=== PATIENT | male | born 1940 | race Caucasian/White ===

== ENCOUNTER 2017-03-22 08:01 | Emergency (ER) | payer MEDICARE, OTHER ==
[~2017-03-22] VITALS: Ht 180.3 cm; Wt 88.6 kg
[~2017-03-22 08:01] MED LIST: ASPI-628 PO; ATEN25TA PO; KEN1C EXT; LEVO125T6 PO; LISI40TA PO; NIAC1CAP PO; OMEP40CA36 PO; SIMV40TA5 PO
[2017-03-22 08:08] VITALS: BP 158/74; PULSE 70; RESP 16; O2SAT 99
--- NOTE | 2017-03-22 08:20 | ED.REPORT ---
HPI- Male Date of Service Mar 22, 2017 ED Provider: Guerline Nguyen MD The pt is a 76 y/o male w/ a hx of HTN and hyperlipidemia presenting to the ED complaining of increased difficulty urinating onset last night. He also reports hematuria and dysuria. He reports working outside in the heat all day yesterday then feeling chills later that night. He reports that he has an enlarged prostate but does not take any medications to help with his symptoms. He has experienced difficulty urinating in the past and reports needing a catheter to be placed overnight then. The pt has not had intercourse w/ his in a month or two. The pt also reports having a cystotomy ten year ago. Nursing Notes Stated Complaint: BLOOD IN URINE, DIFFICULTY URINATING Chief Complaint: Difficulty urinating Nursing Notes Reviewed: Yes Allergies: Coded Allergies: Penicillins (Verified Allergy, Severe, ITCH,RASH,HIVES, 03/22/17) [id number] Reductase Inhibitor (Verified Allergy, Unknown, 03/22/17) Uncoded Allergies: Penicillin (Allergy, Severe, ITCH,RASH,HIVES, 02/04/05) Scheduled Aspirin (Aspir 81) 81 Mg Tablet. 81 MG PO DAILY Atenolol (Atenolol) 25 Mg Tablet 25 MG PO DAILY Levothyroxine (Levothyroxine) 125 Mcg Tablet 0.137 MCG PO DAILY Lisinopril (Lisinopril) 40 Mg Tablet 60 MG PO DAILY Omeprazole (Omeprazole) 40 Mg Capsule. 20 MG PO BID Simvastatin (Simvastatin) 40 Mg Tablet 40 MG PO HS Tamsulosin (Flomax) 0.4 Mg Capsule 0.4 MG PO DAILY Triamcinolone Acet (Triamcinolone Acetonide Cream) 1 Applic/0.25 Gm Cr 1 APPLIC EXT BID Miscellaneous Medications Cholecalciferol (Vitamin D3) (Vitamin D3) 1,000 Unit Tab.chew 1,000 UNIT PO Clobetasol Propionate (Clobetasol Propionate) 15 Gm Gel..gram. 0.05 GM TP Diclofenac Gel (Diclofenac Gel) 100 Gm Tube 1 APPLIC TOPICAL Flunisolide (Flunisolide) 25 Ml [place] 25 ML NS General Time Seen by MD: 08:19 Chief Complaint Urination decreased Hx Obtained From: Patient Arrived By: Walk-in Onset Occurred: Yesterday Symptom Duration: Since onset Recent Healthcare: No recent hospitalization, Recent doctor visit Similar Sx Previous: Yes Past Medical History Past Medical History Reports: GERD, Hyperlipidemia, Hypertension Smoking History Never Smoker Ambulatory Status Independent Review of Systems Male: Reports Dysuria, Reports Hematuria, Reports Urination decreased Complete sys rev & neg: except as marked. Physical Exam Initial Vital Signs Vital Signs (First) Date Time Temp Pulse Resp B/P Pulse Ox O2 Delivery O2 Flow Rate FiO2 03/22/17 08:08 36.0 70 16 158/74 99 Room Air Initial VS: Reviewed General/Constitutional: Well-developed, Well-nourished ENT: Mucous membranes moist, Conjunctiva normal, No scleral icterus Neck: Supple, Non-tender, Full range of motion Respiratory: Breath sounds normal, Clear to auscultation, No respiratory distress Cardiovascular: Regular rate & rhythm, Heart sounds normal, Intact distal pulses Extremities: Vascular intact, Neuro intact, No swelling, No tenderness Neurologic: Alert, Oriented, Nonfocal Psychiatric: Mood/affect normal, Behavior normal, Normal thought content Male Genitourinary: Patient refused exam Skin: Color NL, No rash, Warm, Dry [place]-actinic keratoses over scalp and forehead that were recently treated w/ liquid nitrogen Interpretation & Diagnostics Ultrasound showed that post-void residual is 150 cc 400 cc removed w/ Cruz catheter Lab Results Interpretation Test 03/22/17 08:00 Urine Color Yellow (YELLOW) Urine Appearance Turbid (CLEAR,HAZY) Urine pH 6.0 (5.0-8.0) Urine Specific [place] 1.010 (1.003-1.035) Urine Protein 100mg/dL (NEG,TRACE) Urine Glucose (UA) Negativemg/dL (NEGATIVE) Urine Ketones Negativemg/dL (NEGATIVE) Urine Occult Blood Large (NEGATIVE) Urine Nitrite Positive (NEGATIVE) Urine Bilirubin Negative (NEGATIVE) Urine Urobilinogen Normalmg/dL (NORMAL) Urine Leukocyte Esterase Large (NEGATIVE) Urine RBC >50/hpf (0-2) Urine WBC >50/hpf (0-5) Urine Epithelial Cells Occasional/hpf (NONE-MOD) Urine Crystals None seen (NONE SEEN) Urine Bacteria Few/hpf (NONE-FEW) Urine Hyaline Casts None/lpf (NONE) Urine Granular Casts None seen (NONE SEEN) Urine Waxy Casts None seen (NONE SEEN) Urine Red Blood Cell Casts None seen (NONE SEEN) Urine White Blood Cell Casts None seen (NONE SEEN) Urine Mucus None seen (None Seen) Urine Trichomonas None seen (NONE SEEN) Urine Yeast None (NONE SEEN) Urinalysis Comment None Re-Eval/Medical Decision Med Decision/Clinical Course Presents with acute urinary retention. No difficulties with placing catheter. Discharged home with instructions to follow up with Dr. Yap tomorrow and given a first dose of Flomax. Concern that we make him dizzy he believes he has tried this previously. About 2 hours after discharge he notices severe pain no urine coming through the Cruz and urine draining out around the Cruz catheter. He also notices some blood clots in the Cruz catheter bag. Emergency the emergency department where the Cruz is flushed and again has clear urine return. 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 Source of Hx: Old records Re-Evaluation/Progress #1: Time of Eval: 09:33 Re-Evaluation/Progress Note: Pt rechecked. Informed pt of plan for treatment. Pt understands and agrees with plan for treatment. F/U instructions and RTER warnings given. All questions addressed. Re-Evaluation/Progress #2: Time of Eval: 12:01 Re-Evaluation/Progress Note: Pt has returned to the ED due to noticing blood clots in his catheter. Re-Evaluation/Progress #3: Time of Eval: 12:30 Re-Evaluation/Progress Note: The pt's catheter was irrigated. Minimal urine was in the bladder and only small blood clots came out. Counseled Regarding: Diagnosis, Lab results, Need for follow-up, When/why to return to ED Discharge & Departure Impression: Primary Impression: Acute urinary retention Disposition: Home Discharge Condition All VS Reviewed: Yes Condition: Stable Additional Instructions: Thank for you entrusting us with your care today. You were diagnosed with acute urinary retention. Your urine has been sent to the lab to see if there is an infection. You have not been started on antibiotics but please use the Flomax as recommended. This can help with prostate fullness. If you find that it makes you dizzy or have low blood pressure then please stop it. You had your first dose in the emergency room today and a prescription has been electronically sent to [facility] for you. You have and appointment to see Dr Carlson, the urologist, for a follow up visit on 03/23/17. Please check in at 10:30 Please return to the emergency department if you experience any new or worsening symptoms. I hope you feel better soon. after returning 2 hrs later needed catheter flushed: your catheter was briefly plugged after placement this morning. We were able to flush out some clots and you have had clear urine since. You did notice dizziness after the flomax. It was worth a try, but doesn't look like a medicine you are going to be able to tolerate. Please keep your apt with Dr Carlson tomorrow. Referrals: Kylee Dickens MD [facility] Scribe Attestation Portions of this note were transcribed by Obie Jacob. I, Dr. Nguyen personally performed the history, physical exam and medical decision-making; I reviewed and confirmed the accuracy of the information in the transcribed note. copies to: Kylee Dickens MD, Shawna L MD Mar 22, 2017 08:20 Obie Jacob Mar 22, 2017 08:52
[2017-03-22] MEDS ORDERED: CHOL10008 PO (08:45)
[2017-03-22] MEDS ORDERED: FLUN25SP NS (08:45)
[2017-03-22] MEDS ORDERED: CLOB15GE TP (08:45)
[2017-03-22] MEDS ORDERED: DICL100G26 TOPICAL (08:45)
[2017-03-22 09:02] LABS: APPEARANCE,URINE TURBID (CLEAR,HAZY); COLOR,URINE YELLOW (YELLOW)
[2017-03-22 09:03] LABS: OCCULT BLOOD,URINE LARGE (NEGATIVE); UROBILINOGEN,URINE NORMAL (NORMAL)
[2017-03-22] MEDS ORDERED: TAMS0.4C98 PO (09:20)
[2017-03-22 09:57] VITALS: BP 158/74; PULSE 70; RESP 16; O2SAT 99
[2017-03-22] MEDS ORDERED: PHEN-777 PO (22:55)
== END 2017-03-22 09:58 | disposition home or self-care (01) ==
LOC: SED 08:01
DX: R33.9 Retention of urine, unspecified (principal); I10 Essential (primary) hypertension; K21.9 Gastro-esophageal reflux disease without esophagitis; E78.5 Hyperlipidemia, unspecified; B96.20 Unspecified Escherichia coli [E. coli] as the cause of diseases classified elsewhere; Z79.82 Long term (current) use of aspirin; Z88.0 Allergy status to penicillin

== ENCOUNTER 2017-03-22 11:36 | Emergency (ER) | payer MEDICARE, OTHER ==
[~2017-03-22] VITALS: Ht 180.3 cm; Wt 88.6 kg
[~2017-03-22 11:36] MED LIST changes: +CHOL10008 PO; +CLOB15GE TP; +DICL100G26 TOPICAL; +FLUN25SP NS; +TAMS0.4C98 PO
[2017-03-22 11:40] VITALS: BP 122/65; PULSE 89; RESP 14; O2SAT 99
[2017-03-22 13:38] VITALS: BP 116/68; PULSE 76; RESP 16; O2SAT 100
[2017-03-22 13:47] VITALS: BP 116/68; PULSE 76; RESP 16; O2SAT 100
[2017-03-22] MEDS ORDERED: PHEN-777 PO (22:55)
--- NOTE | 2017-03-24 11:59 | PCM.EDPN ---
ED Note Date of Service Mar 24, 2017 this visit is a continuation of his visit a few hours earlier today. Please refer to that note for full details. Guerline Nguyen MD Mar 24, 2017 11:59
== END 2017-03-22 13:48 | disposition home or self-care (01) ==
LOC: SED 11:36
DX: Z53.20 Procedure and treatment not carried out because of patient's decision for unspecified reasons (principal)

== ENCOUNTER 2017-03-22 19:54 | Emergency (ER) | payer OTHER ==
[~2017-03-22] VITALS: Ht 177.8 cm; Wt 90.9 kg
[2017-03-22 19:58] VITALS: BP 116/65; PULSE 87; RESP 18; O2SAT 98
[2017-03-22] MEDS ORDERED: Lidocaine 2% 6mL Topical Jelly ONE (21:25)
--- NOTE | 2017-03-22 21:50 | ED.REPORT ---
HPI- Male Date of Service Mar 22, 2017 ED Provider: Adama Macias MD A 76 year old male with a history of hypertension, hyperlipidemia and GERD presents to the ED complaining of a blocked catheter. The pt had a catheter placed this morning in the ED and this is his second visit since for blockage of this catheter. His catheter has been irrigated multiple times and he has been passing clots. He last passed urine through the catheter at 17:00 today. At that time, he passed blood and experienced significant lower abdominal and penile pain. The pt has an appointment with his urologist tomorrow morning. Nursing Notes Stated Complaint: BLOCKED CATHETER Chief Complaint: Male Abdominal Pain Nursing Notes Reviewed: Yes Allergies: Coded Allergies: Penicillins (Verified Allergy, Severe, ITCH,RASH,HIVES, 03/22/17) [id number] Reductase Inhibitor (Verified Allergy, Unknown, 03/22/17) Uncoded Allergies: Penicillin (Allergy, Severe, ITCH,RASH,HIVES, 02/04/05) Scheduled Aspirin (Aspir 81) 81 Mg Tablet.dr 81 MG PO DAILY Atenolol (Atenolol) 25 Mg Tablet 25 MG PO DAILY Levothyroxine (Levothyroxine) 125 Mcg Tablet 0.137 MCG PO DAILY Lisinopril (Lisinopril) 40 Mg Tablet 60 MG PO DAILY Omeprazole (Omeprazole) 40 Mg Capsule.dr 20 MG PO BID Simvastatin (Simvastatin) 40 Mg Tablet 40 MG PO HS Tamsulosin (Flomax) 0.4 Mg Capsule 0.4 MG PO DAILY Triamcinolone Acet (Triamcinolone Acetonide Cream) 1 Applic/0.25 Gm Cr 1 APPLIC EXT BID Scheduled PRN Phenazopyridine (Phenazopyridine) 200 Mg Tablet 200 MG PO TID PRN PRN dysuria Miscellaneous Medications Cholecalciferol (Vitamin D3) (Vitamin D3) 1,000 Unit Tab.chew 1,000 UNIT PO Clobetasol Propionate (Clobetasol Propionate) 15 Gm Gel..gram. 0.05 GM TP Diclofenac Gel (Diclofenac Gel) 100 Gm Tube 1 APPLIC TOPICAL Flunisolide (Flunisolide) 25 Ml [place] 25 ML NS General Time Seen by MD: 21:50 Chief Complaint Other (Blocked catheter) Hx Obtained From: Patient Arrived By: Walk-in Onset Occurred: 5 - 8 hours ago Symptom Duration: Since onset Recent Healthcare: Recent doctor visit Similar Sx Previous: Yes Past Medical History Past Medical History VA arthritis hepatitis Reports: GERD, Hyperlipidemia, Hypertension Past Surgical History cardiac stents hernia ankle fixation Smoking History Never Smoker Social History Other Social History: Good social support Ambulatory Status Independent Review of Systems Review of Systems Note: urinary retention from blocked catheter penile pain GI: Reports: Abdominal pain, Denies: Vomiting Musculoskeletal: Denies: Back pain, Neck pain Skin: Denies Rash Complete sys rev & neg: except as marked. Respiratory: Denies: Non-productive cough, Shortness of breath Cardiovascular: Denies: Chest pain Physical Exam Initial Vital Signs Vital Signs (First) Date Time Temp Pulse Resp B/P Pulse Ox O2 Delivery O2 Flow Rate FiO2 03/22/17 19:58 36.2 87 18 116/65 98 Room Air Initial VS: Reviewed Male Genitourinary: Atraumatic, Penis NL [address] draining clear urine General/Constitutional: Awake, Alert, No acute distress Abdomen: Atraumatic, Soft, Non-tender, No distention Skin: Atraumatic, Color NL, No rash, Warm, Dry Head / Eyes: Atraumatic, Normocephalic, PERRL, EOMI ENT: Atraumatic, Airway patent, Mucous membranes moist Neck: Atraumatic, Supple, Full range of motion Respiratory / Chest: Atraumatic, Breath sounds NL, Breath sounds = bilat, No respiratory distress Cardiovascular: Heart rate NL, Regular rhythm, Heart sounds NL Back: Atraumatic, Full range of motion Upper Extremity / MS: Atraumatic, Full range of motion Lower Extremity / Pelvis / MS: Atraumatic, Full range of motion Neurologic: Oriented X3, Speech NL, No motor deficits, No sensory deficits Psychiatric: Affect NL, Mood NL Re-Eval/Medical Decision Med Decision/Clinical Course 76-year-old with acute urinary retention at a sixteen Cruz placed earlier today which is clogged up now twice. Replace this evening with a twenty [place] Cruz. Flowing adequately now. Bladder scan shows bilateral 150 mL of urine. His irritation is clearly not volume related that may be related to irritation of the trigone. Begun with Pyridium with improvement. Discharged for follow-up with urology tomorrow. Source of Hx: Old records Re-Evaluation/Progress : Time of Eval: 22:51 Patient Status: Condition improved Re-Evaluation/Progress Note: Pt rechecked, whose condition has significantly improved. The diagnosis and plan for discharge are discussed. The pt understands and agrees with the plan. All questions are addressed at this time. Counseled Regarding: Diagnosis, Lab results, Need for follow-up, When/why to return to ED Discharge & Departure Impression: Primary Impression: Acute urinary retention Additional Impression: Bladder spasms Disposition: Home Discharge Condition All VS Reviewed: Yes Condition: Stable Patient Instructions: Cruz Catheter Placement and Care (ED) Additional Instructions: Pyridium three times daily as needed for discomfort. Follow-up with your urologist as planned tomorrow. Return if any immediate issues. Leave the large bag on for tonight and may use the leg bag for tomorrow during the day. Referrals: Javier Ty MD (PCP) Scribe Attestation Portions of this note were transcribed by Avinash Bermudez. I, Dr. Macias personally performed the history, physical exam and medical decision-making; I reviewed and confirmed the accuracy of the information in the transcribed note. copies to: Javier Ty MD, Christopher W MD Mar 22, 2017 21:50 AVINASH BERMUDEZ Mar 22, 2017 22:01
[2017-03-22] MEDS ORDERED: Phenazopyridine 97.5 mg Tablet PO ONE (22:00)
[2017-03-22] MEDS ORDERED: PHEN-777 PO (22:55)
[2017-03-22 23:16] VITALS: BP 115/61; PULSE 74; RESP 16; RESP 18; O2SAT 97
== END 2017-03-22 23:17 | disposition home or self-care (01) ==
LOC: SED 19:54
DX: R33.9 Retention of urine, unspecified (principal); N32.89 Other specified disorders of bladder; I11.9 Hypertensive heart disease without heart failure; I25.2 Old myocardial infarction; K21.9 Gastro-esophageal reflux disease without esophagitis; E78.5 Hyperlipidemia, unspecified; Z46.6 Encounter for fitting and adjustment of urinary device; Z95.5 Presence of coronary angioplasty implant and graft; Z79.82 Long term (current) use of aspirin; Z88.0 Allergy status to penicillin; Z88.8 Allergy status to other drugs, medicaments and biological substances